=== PATIENT | female | born 1935 | race Caucasian/White ===

== ENCOUNTER 2017-02-16 11:12 | Inpatient (IN) | payer OTHER ==
[~2017-02-16] VITALS: Ht 152.4 cm; Wt 75.6 kg
[~2017-02-16 11:12] MED LIST: AZIT500T5 PO; CIPR250T27 PO; CLIN300C8 PO; FLUO10CA13 PO; HYDR-3240 PO; HYDR-882 PO; LISI1TAB3 PO; LISI2.5T PO; METF10002 PO; METF500T4 PO; POLY17PO5 PO
[2017-02-16] MEDS ORDERED: SODIUM CHLORIDE FLUSH 10ML SYR IVF ONE (11:30)
[2017-02-16 11:46] LABS: HEMATOCRIT 38.3 % (34.6-47.8); HEMOGLOBIN 12.6 g/dL (11.7-16.4); WHITE BLOOD COUNT 10.8 x10^3/uL (3.4-10)
[2017-02-16 11:58] LABS: ASPARTATE AMINO TRANSFERASE 32 U/L (15-37); BLOOD UREA NITROGEN 29 mg/dL (7-18)
[2017-02-16 12:04] LABS: IS PT STATUS REG ER OR PRE ER? YES
[2017-02-16] MEDS ORDERED: FURO20TA3 PO (12:49)
[2017-02-16] MEDS ORDERED: SULF1TAB24 PO (12:49)
[2017-02-16] MEDS ORDERED: PRIM50TA PO (12:49)
[2017-02-16] MEDS ORDERED: HYDR-882 PO (12:49)
[2017-02-16] MEDS ORDERED: SPIR25TA3 PO (12:49)
[2017-02-16] MEDS ORDERED: ZOLPIDEM 5MG TABLET PO PRN (14:30)
[2017-02-16] MEDS ORDERED: NITROGLYCERIN 0.4 MG BOTTLE (25 TABS) SL PRN (14:30)
[2017-02-16] MEDS ORDERED: ACETAMINOPHEN 325 MG TABLET PO PRN (14:30)
[2017-02-16] MEDS ORDERED: DOCUSATE 100 MG CAPSULE PO PRN (14:30)
[2017-02-16] MEDS ORDERED: NITROGLYCERIN 0.4 MG/SPRAY SL PRN (14:30)
[2017-02-16] MEDS ORDERED: MORPHINE SULFATE 4 MG/ML, 1ML IVPush PRN (14:30)
[2017-02-16 15:24] VITALS: BP 115/62
[2017-02-16] MEDS: HYDROcodone/APAP 5/325 TABLET PO PRN ×2 (16:02→20:46)
[2017-02-16] MEDS: metFORMIN 500 MG TABLET PO SCH (17:34)
[2017-02-16] MEDS: ENOXAPARIN 40 MG/0.4 ML SQ SCH (17:35)
[2017-02-16 19:00] VITALS: BP 109/80
[2017-02-16 19:19] LABS: IS PT STATUS REG ER OR PRE ER? NO
[2017-02-16] MEDS ORDERED: ENOXAPARIN 30 MG/0.3 ML SQ SCH (20:00)
[2017-02-16 20:44] VITALS: BP 125/63
[2017-02-16] MEDS: LACTULOSE 10 GM/15 ML UDC PO SCH (20:46)
[2017-02-16] MEDS: PRIMIDONE 50 MG TABLET PO SCH (20:47)
[2017-02-16 23:34] VITALS: BP 138/72
[2017-02-16] MEDS: NITROGLYCERIN 0.4 MG BOTTLE (25 TABS) SL PRN ×3 (23:50→23:59)
[2017-02-16 23:53] VITALS: BP 121/75
[2017-02-16 23:58] VITALS: BP 114/61
[2017-02-17] VITALS (9 sets, daily range): BP systolic 107–160; BP diastolic 63–80
[2017-02-17] MEDS ORDERED: NITROGLYCERIN 0.4 MG BOTTLE (25 TABS) SL PRN
[2017-02-17] MEDS ORDERED: NITROGLYCERIN 0.4 MG/SPRAY SL PRN
[2017-02-17] MEDS: HYDROcodone/APAP 5/325 TABLET PO PRN ×5 (00:14→23:01)
[2017-02-17] MEDS: ONDANSETRON ODT 4 MG PO PRN ×2 (03:13→13:02)
[2017-02-17 05:28] LABS: HEMATOCRIT 38.6 % (34.6-47.8); HEMOGLOBIN 12.7 g/dL (11.7-16.4); WHITE BLOOD COUNT 12.2 x10^3/uL (3.4-10)
[2017-02-17] MEDS: ASPIRIN 325 MG TABLET EC PO SCH (05:29)
[2017-02-17 05:42] LABS: ASPARTATE AMINO TRANSFERASE 30 U/L (15-37); BLOOD UREA NITROGEN 22 mg/dL (7-18)
[2017-02-17] MEDS ORDERED: REGADENOSON 0.4 MG/5 ML SYRINGE ONE (07:58)
[2017-02-17] MEDS: LACTULOSE 10 GM/15 ML UDC PO SCH ×2 (09:00→20:53)
[2017-02-17] MEDS: SPIRONOLACTONE 25 MG TABLET PO SCH (10:20)
[2017-02-17] MEDS: metFORMIN 500 MG TABLET PO SCH ×2 (10:20→16:39)
[2017-02-17] MEDS: PRIMIDONE 50 MG TABLET PO SCH ×2 (10:21→20:53)
[2017-02-17] MEDS: LISINOPRIL 10 MG TABLET PO SCH (10:21)
[2017-02-17] MEDS: HYDROCHLOROTHIAZIDE 12.5 MG CAPSULE PO SCH (10:21)
[2017-02-17] MEDS: ENOXAPARIN 40 MG/0.4 ML SQ SCH (15:38)
[2017-02-17] MEDS ORDERED: BUPIVACAINE/PF-EPI 0.5% 1:200K ONE (16:06)
[2017-02-17] MEDS ORDERED: MIDAZOLAM 1 MG/ML, 2ML ONE (16:19)
[2017-02-17] MEDS ORDERED: FENTANYL PF 250 MCG/5ML ONE (16:19)
[2017-02-17] MEDS ORDERED: CEFAZOLIN 1,000 MG ONE (16:55)
[2017-02-17] MEDS ORDERED: ROCURONIUM 10 MG/ML ONE (16:55)
[2017-02-17] MEDS ORDERED: PROPOFOL 10 MG/ML, 20ML ONE (16:55)
[2017-02-17] MEDS ORDERED: SUGAMMADEX 200 MG/2 ML IVPush ONE (17:21)
[2017-02-17] MEDS ORDERED: FENTANYL PF 100 MCG/2ML ONE (18:16)
[2017-02-17] MEDS ORDERED: OXYcodone 5 MG/5 ML ORAL.SOL UDC ONE (18:16)
[2017-02-17] MEDS: FENTANYL PF 100 MCG/2ML IV PRN ×4 (18:20→18:50)
[2017-02-17] MEDS ORDERED: ONDANSETRON 2MG/ML, 2ML IVPush PRN (18:30)
[2017-02-17] MEDS ORDERED: hydrALAzine 20 MG/ML, 1ML IV PRN (18:30)
[2017-02-17] MEDS ORDERED: OXYcodone 5 MG/5 ML ORAL.SOL UDC PO PRN (18:30)
[2017-02-17] MEDS ORDERED: ACETAMINOPHEN 325 MG TABLET PO PRN (18:30)
[2017-02-17] MEDS ORDERED: LABETALOL 5MG/ML, 20ML IV PRN (18:30)
[2017-02-17] MEDS ORDERED: HYDROmorphone 1 MG/ML, 1ML IV PRN (18:30)
[2017-02-17] MEDS ORDERED: SODIUM CHLORIDE 0.9% 500 ML IV ONE (21:00)
[2017-02-18 01:48] VITALS: BP 102/53
[2017-02-18] MEDS: ASPIRIN 325 MG TABLET EC PO SCH (05:24)
[2017-02-18 05:31] VITALS: BP 102/63
[2017-02-18] MEDS: HYDROcodone/APAP 5/325 TABLET PO PRN ×5 (05:32→22:13)
[2017-02-18 07:13] VITALS: BP 93/45
[2017-02-18 08:09] VITALS: BP 107/63
[2017-02-18] MEDS: LACTULOSE 10 GM/15 ML UDC PO SCH ×2 (09:00→21:00)
[2017-02-18] MEDS: LISINOPRIL 10 MG TABLET PO SCH (09:08)
[2017-02-18] MEDS: SPIRONOLACTONE 25 MG TABLET PO SCH (09:08)
[2017-02-18] MEDS: metFORMIN 500 MG TABLET PO SCH ×2 (09:08→17:29)
[2017-02-18] MEDS: HYDROCHLOROTHIAZIDE 12.5 MG CAPSULE PO SCH (09:09)
[2017-02-18] MEDS: PRIMIDONE 50 MG TABLET PO SCH ×2 (09:09→21:23)
[2017-02-18 13:16] VITALS: BP 108/63
[2017-02-18] MEDS ORDERED: ENOXAPARIN 30 MG/0.3 ML SQ SCH (16:00)
[2017-02-18 19:12] VITALS: BP 99/58
[2017-02-19 02:00] VITALS: BP 96/59
[2017-02-19] MEDS: HYDROcodone/APAP 5/325 TABLET PO PRN ×4 (03:37→16:37)
[2017-02-19 08:12] VITALS: BP 125/69
[2017-02-19] MEDS: LACTULOSE 10 GM/15 ML UDC PO SCH ×2 (09:00→09:10)
[2017-02-19] MEDS: HYDROCHLOROTHIAZIDE 12.5 MG CAPSULE PO SCH (09:09)
[2017-02-19] MEDS: LISINOPRIL 10 MG TABLET PO SCH (09:09)
[2017-02-19] MEDS: metFORMIN 500 MG TABLET PO SCH (09:09)
[2017-02-19] MEDS: PRIMIDONE 50 MG TABLET PO SCH (09:09)
[2017-02-19] MEDS: SPIRONOLACTONE 25 MG TABLET PO SCH (09:09)
[2017-02-19] MEDS: ASPIRIN 325 MG TABLET EC PO SCH (09:09)
[2017-02-19 14:06] VITALS: BP 114/62
== END 2017-02-19 17:24 | disposition home or self-care (01) | DRG 417 ==
LOC: ED 11:36 → INTOOBSV 13:51 → EDIP 13:51 → 5SO 15:16 → OBSVTOIN 02-17 15:27
PROVIDERS: ADMIT Internal Medicine; ATTEND Internal Medicine
PROC: 0FT44ZZ Resection of Gallbladder, Percutaneous Endoscopic Approach (ICD-10-PCS; principal; 2017-02-17 17:30)
DX: K80.00 Calculus of gallbladder with acute cholecystitis without obstruction (principal); J18.9 Pneumonia, unspecified organism; N17.0 Acute kidney failure with tubular necrosis; J44.9 Chronic obstructive pulmonary disease, unspecified; E11.9 Type 2 diabetes mellitus without complications; N28.1 Cyst of kidney, acquired; I10 Essential (primary) hypertension; E78.5 Hyperlipidemia, unspecified; K82.8 Other specified diseases of gallbladder; R25.1 Tremor, unspecified; Z87.891 Personal history of nicotine dependence; Z90.49 Acquired absence of other specified parts of digestive tract; Z88.0 Allergy status to penicillin; Z88.6 Allergy status to analgesic agent
CPT/HCPCS: 36415; 71010; 76700; 78452; 80053; 80061; 83036; 83690; 83880; 84484; 85025; 85610; 85730; 87324; 87493; 88304; 93005; 93017; G0378; J0690; J1650; J2250; J2704; J2785; J3010; Q0162; A9502; C9898; J7040

== ENCOUNTER 2018-06-20 13:17 | Observation (INO) | payer OTHER ==
[~2018-06-20] VITALS: Ht 154.9 cm; Wt 63.8 kg
[~2018-06-20 13:17] MED LIST changes: +ASPI-515 PO; +ATOR20TA37 PO; +CIPR500T87 PO; +FURO20TA3 PO; +HYDR-3653 PO; -HYDR-882 PO; +METF500T PO; +METF500T17 PO; -METF500T4 PO; +PRIM50TA PO; +SPIR25TA5 PO; +SULF1TAB24 PO
[2018-06-20] MEDS ORDERED: SODIUM CHLORIDE FLUSH 10ML SYR IVF ONE (16:30)
[2018-06-20 16:35] LABS: BASOPHILS # (AUTO) 0.18 x10^3/uL (0-0.1); BASOPHILS % (AUTO) 2 % (0-1); EOSINOPHILS # (AUTO) 0.03 x10^3/uL (0-0.4); EOSINOPHILS % (AUTO) 0 % (1-7); LYMPHOCYTES # (AUTO) 2.38 x10^3/uL (1-3.4); LYMPHOCYTES % (AUTO) 21 % (22-44); MD NO; MEAN CORPUSCULAR HEMOGLOBIN 33.5 pg (27.0-34.8); MEAN CORPUSCULAR HGB CONC 33.4 g/dL (32.4-35.8); MEAN CORPUSCULAR VOLUME 100.3 fL (80-100); MEAN PLATELET VOLUME 7.1 fL (7.4-10.4); MONOCYTES # (AUTO) 0.53 x10^3/uL (0.2-0.8); MONOCYTES % (AUTO) 5 % (2-9); NEUTROPHILS # (AUTO) 7.98 x10^3/uL (1.8-6.8); NEUTROPHILS % (AUTO) 72 % (42-75); PLATELET COUNT 353 x10^3/uL (130-400); RED BLOOD COUNT 3.52 x10^6/uL (3.82-5.3); RED CELL DISTRIBUTION WIDTH 13.7 % (9.6-15.2)
[2018-06-20 16:46] LABS: ALANINE AMINOTRANSFERASE 22 U/L (12-78); ALBUMIN 3.5 g/dL (3.4-5.0); ANION GAP 9 mmol/L (5-15); CALCIUM 9.2 mg/dL (8.5-10.1); CHLORIDE 97 mmol/L (98-107); CREATININE 1.98 mg/dL (0.55-1.02)
[2018-06-20 16:50] LABS: ALKALINE PHOSPHATASE 40 U/L (45-117); BILIRUBIN,TOTAL 0.7 mg/dL (0.2-1.0); TOTAL PROTEIN 6.7 g/dL (6.4-8.2); TROPONIN I < 0.015 ng/mL (0.000-0.045)
[2018-06-20] MEDS ORDERED: PRED10TA PO (17:38)
[2018-06-20] MEDS ORDERED: FLUO20CA19 PO (17:38)
[2018-06-20] MEDS ORDERED: ALLO300T PO (17:38)
[2018-06-20] MEDS ORDERED: METF500T17 PO (17:38)
[2018-06-20] MEDS ORDERED: TRAZODONE 50MG TABLET PO PRN (18:30)
[2018-06-20] MEDS ORDERED: GABAPENTIN 300 MG CAPSULE PO PRN (18:30)
[2018-06-20] MEDS ORDERED: ACETAMINOPHEN 325 MG TABLET PO PRN (18:30)
[2018-06-20 18:40] VITALS: BP 115/60
[2018-06-20] MEDS ORDERED: LEVOFLOXACIN/PMX 500MG/100ML 100 ML IV SCH (19:00)
[2018-06-20] MEDS: NS + 20MEQ KCL 1,000 ML IV SCH (19:59)
[2018-06-20] MEDS: LACTULOSE 10 GM/15 ML UDC PO SCH (20:03)
[2018-06-20] MEDS: ENOXAPARIN 30 MG/0.3 ML SQ SCH (20:03)
[2018-06-20 21:18] LABS: MICROSCOPIC AUTO
[2018-06-20 21:22] LABS: CULTURE INDICATED? YES
[2018-06-21 03:12] VITALS: BP 122/67
[2018-06-21 06:07] LABS: BASOPHILS # (AUTO) 0.03 x10^3/uL (0-0.1); BASOPHILS % (AUTO) 0 % (0-1); EOSINOPHILS # (AUTO) 0.17 x10^3/uL (0-0.4); EOSINOPHILS % (AUTO) 2 % (1-7); LYMPHOCYTES # (AUTO) 2.16 x10^3/uL (1-3.4); LYMPHOCYTES % (AUTO) 23 % (22-44); MD NO; MEAN CORPUSCULAR HEMOGLOBIN 33.6 pg (27.0-34.8); MEAN CORPUSCULAR HGB CONC 33.6 g/dL (32.4-35.8); MEAN PLATELET VOLUME 7.4 fL (7.4-10.4); MONOCYTES # (AUTO) 0.75 x10^3/uL (0.2-0.8); MONOCYTES % (AUTO) 8 % (2-9); NEUTROPHILS # (AUTO) 6.44 x10^3/uL (1.8-6.8); NEUTROPHILS % (AUTO) 67 % (42-75); PLATELET COUNT 309 x10^3/uL (130-400); RED BLOOD COUNT 3.12 x10^6/uL (3.82-5.3); RED CELL DISTRIBUTION WIDTH 13.4 % (9.6-15.2)
[2018-06-21 06:18] LABS: ALANINE AMINOTRANSFERASE 18 U/L (12-78); ANION GAP 7 mmol/L (5-15); CALCIUM 8.5 mg/dL (8.5-10.1); CHLORIDE 101 mmol/L (98-107)
[2018-06-21 06:21] LABS: ALKALINE PHOSPHATASE 35 U/L (45-117); BILIRUBIN,TOTAL 0.7 mg/dL (0.2-1.0); CREATININE 1.34 mg/dL (0.55-1.02); TOTAL PROTEIN 5.8 g/dL (6.4-8.2)
[2018-06-21 06:46] VITALS: BP 120/72
[2018-06-21] MEDS: NS + 20MEQ KCL 1,000 ML IV SCH ×2 (07:48→18:15)
[2018-06-21] MEDS: HYDROCHLOROTHIAZIDE 12.5 MG CAPSULE PO SCH (09:25)
[2018-06-21] MEDS: FUROSEMIDE 20 MG TABLET PO SCH (09:25)
[2018-06-21] MEDS: LISINOPRIL 10 MG TABLET PO SCH (09:25)
[2018-06-21] MEDS: FLUOXETINE HCL 20 MG CAPSULE PO SCH (09:25)
[2018-06-21] MEDS: metFORMIN 500 MG TABLET PO SCH (09:25)
[2018-06-21] MEDS: LACTULOSE 10 GM/15 ML UDC PO SCH ×2 (09:27→20:18)
[2018-06-21 13:35] VITALS: BP 99/62
[2018-06-21] MEDS: ONDANSETRON ODT 4 MG PO PRN (13:48)
[2018-06-21] MEDS: HYDROcodone/APAP 10/325 MG TABLET PO PRN ×2 (16:15→20:20)
[2018-06-21] MEDS: ENOXAPARIN 30 MG/0.3 ML SQ SCH (18:15)
[2018-06-21] MEDS: LEVOFLOXACIN/PMX 250MG/50ML 50 ML IV SCH (19:06)
[2018-06-21 19:07] VITALS: BP 100/63
[2018-06-22 01:44] VITALS: BP 122/66
[2018-06-22] MEDS: NS + 20MEQ KCL 1,000 ML IV SCH ×2 (02:52→13:30)
[2018-06-22] MEDS: HYDROcodone/APAP 10/325 MG TABLET PO PRN ×4 (02:52→21:06)
[2018-06-22 07:11] VITALS: BP 114/67
[2018-06-22] MEDS: LISINOPRIL 10 MG TABLET PO SCH (08:46)
[2018-06-22] MEDS: FUROSEMIDE 20 MG TABLET PO SCH (08:46)
[2018-06-22] MEDS: metFORMIN 500 MG TABLET PO SCH (08:46)
[2018-06-22] MEDS: LACTULOSE 10 GM/15 ML UDC PO SCH ×2 (08:46→19:54)
[2018-06-22] MEDS: HYDROCHLOROTHIAZIDE 12.5 MG CAPSULE PO SCH (08:46)
[2018-06-22] MEDS: FLUOXETINE HCL 20 MG CAPSULE PO SCH (08:46)
[2018-06-22 13:06] VITALS: BP 107/66
[2018-06-22] MEDS: ENOXAPARIN 30 MG/0.3 ML SQ SCH (15:26)
[2018-06-22 19:00] VITALS: BP 97/61
[2018-06-22] MEDS: LEVOFLOXACIN/PMX 250MG/50ML 50 ML IV SCH (19:08)
[2018-06-23] MEDS: HYDROcodone/APAP 10/325 MG TABLET PO PRN ×4 (01:28→20:31)
[2018-06-23 01:41] VITALS: BP 104/66
[2018-06-23 05:57] LABS: ALANINE AMINOTRANSFERASE 17 U/L (12-78); ANION GAP 6 mmol/L (5-15); CALCIUM 8.8 mg/dL (8.5-10.1); CHLORIDE 102 mmol/L (98-107); CREATININE 0.92 mg/dL (0.55-1.02)
[2018-06-23 05:59] LABS: ALKALINE PHOSPHATASE 37 U/L (45-117); BILIRUBIN,TOTAL 0.6 mg/dL (0.2-1.0)
[2018-06-23 07:31] VITALS: BP 122/80
[2018-06-23] MEDS: ONDANSETRON ODT 4 MG PO PRN (09:39)
[2018-06-23] MEDS: metFORMIN 500 MG TABLET PO SCH (10:44)
[2018-06-23] MEDS: LACTULOSE 10 GM/15 ML UDC PO SCH ×2 (10:45→19:06)
[2018-06-23] MEDS: FUROSEMIDE 20 MG TABLET PO SCH (10:48)
[2018-06-23] MEDS: HYDROCHLOROTHIAZIDE 12.5 MG CAPSULE PO SCH (10:50)
[2018-06-23] MEDS: LISINOPRIL 10 MG TABLET PO SCH (10:54)
[2018-06-23] MEDS: FLUOXETINE HCL 20 MG CAPSULE PO SCH (10:56)
[2018-06-23 14:30] VITALS: BP 117/75
[2018-06-23] MEDS: ENOXAPARIN 30 MG/0.3 ML SQ SCH (17:34)
[2018-06-23] MEDS: LEVOFLOXACIN/PMX 250MG/50ML 50 ML IV SCH (19:06)
[2018-06-23 19:34] VITALS: BP 124/67
[2018-06-24 00:29] VITALS: BP 109/78
[2018-06-24] MEDS: HYDROcodone/APAP 10/325 MG TABLET PO PRN ×4 (03:09→20:33)
[2018-06-24 05:44] LABS: BASOPHILS % (AUTO) 0 % (0-1); EOSINOPHILS % (AUTO) 3 % (1-7); LYMPHOCYTES # (AUTO) 2.17 x10^3/uL (1-3.4); LYMPHOCYTES % (AUTO) 19 % (22-44); MD NO; MEAN CORPUSCULAR HEMOGLOBIN 33.8 pg (27.0-34.8); MEAN CORPUSCULAR HGB CONC 33.4 g/dL (32.4-35.8); MEAN CORPUSCULAR VOLUME 101.3 fL (80-100); MEAN PLATELET VOLUME 7.2 fL (7.4-10.4); MONOCYTES # (AUTO) 0.79 x10^3/uL (0.2-0.8); MONOCYTES % (AUTO) 7 % (2-9); NEUTROPHILS # (AUTO) 8.04 x10^3/uL (1.8-6.8); NEUTROPHILS % (AUTO) 71 % (42-75); PLATELET COUNT 345 x10^3/uL (130-400); RED BLOOD COUNT 3.31 x10^6/uL (3.82-5.3); RED CELL DISTRIBUTION WIDTH 13.7 % (9.6-15.2)
[2018-06-24 05:47] LABS: ALBUMIN 3.1 g/dL (3.4-5.0); ANION GAP 5 mmol/L (5-15); CALCIUM 9.1 mg/dL (8.5-10.1); CHLORIDE 97 mmol/L (98-107)
[2018-06-24 05:54] LABS: ALANINE AMINOTRANSFERASE 20 U/L (12-78); ALKALINE PHOSPHATASE 35 U/L (45-117); BILIRUBIN,TOTAL 0.6 mg/dL (0.2-1.0); CREATININE 0.91 mg/dL (0.55-1.02)
[2018-06-24 08:05] VITALS: BP 121/67
[2018-06-24] MEDS: metFORMIN 500 MG TABLET PO SCH (09:06)
[2018-06-24] MEDS: FUROSEMIDE 20 MG TABLET PO SCH (09:07)
[2018-06-24] MEDS: HYDROCHLOROTHIAZIDE 12.5 MG CAPSULE PO SCH (09:07)
[2018-06-24] MEDS: LISINOPRIL 10 MG TABLET PO SCH (09:10)
[2018-06-24] MEDS: FLUOXETINE HCL 20 MG CAPSULE PO SCH (09:11)
[2018-06-24] MEDS: LACTULOSE 10 GM/15 ML UDC PO SCH ×2 (09:11→19:25)
[2018-06-24 14:30] VITALS: BP 95/59
[2018-06-24 15:22] VITALS: BP 112/73
[2018-06-24] MEDS: ENOXAPARIN 40 MG/0.4 ML SQ SCH (17:43)
[2018-06-24 19:18] VITALS: BP 109/67
[2018-06-24] MEDS: LEVOFLOXACIN/PMX 250MG/50ML 50 ML IV SCH (19:27)
[2018-06-25 01:48] VITALS: BP 122/71
[2018-06-25] MEDS: HYDROcodone/APAP 10/325 MG TABLET PO PRN ×4 (03:51→21:36)
[2018-06-25 06:59] VITALS: BP 105/69
[2018-06-25] MEDS: LISINOPRIL 10 MG TABLET PO SCH (08:13)
[2018-06-25] MEDS: FLUOXETINE HCL 20 MG CAPSULE PO SCH (08:13)
[2018-06-25] MEDS: LACTULOSE 10 GM/15 ML UDC PO SCH ×2 (08:13→21:36)
[2018-06-25] MEDS: metFORMIN 500 MG TABLET PO SCH (08:13)
[2018-06-25] MEDS: FUROSEMIDE 20 MG TABLET PO SCH (08:14)
[2018-06-25] MEDS: HYDROCHLOROTHIAZIDE 12.5 MG CAPSULE PO SCH (08:14)
[2018-06-25] MEDS ORDERED: NITROFURANTOIN (MACROBID) 100 MG CAPSULE PO SCH (11:30)
[2018-06-25 12:38] VITALS: BP 101/58
[2018-06-25] MEDS: LINEZOLID 600 MG TABLET PO SCH ×2 (12:55→21:37)
[2018-06-25] MEDS: ENOXAPARIN 40 MG/0.4 ML SQ SCH (17:00)
[2018-06-25 18:35] VITALS: BP 109/67
[2018-06-26 02:16] VITALS: BP 113/62
[2018-06-26] MEDS: HYDROcodone/APAP 10/325 MG TABLET PO PRN ×4 (03:04→18:14)
[2018-06-26 07:26] VITALS: BP 101/70
[2018-06-26] MEDS: ONDANSETRON ODT 4 MG PO PRN (08:06)
[2018-06-26] MEDS: metFORMIN 500 MG TABLET PO SCH (08:51)
[2018-06-26] MEDS: HYDROCHLOROTHIAZIDE 12.5 MG CAPSULE PO SCH (08:52)
[2018-06-26] MEDS: FUROSEMIDE 20 MG TABLET PO SCH (08:52)
[2018-06-26] MEDS: LACTULOSE 10 GM/15 ML UDC PO SCH ×2 (08:52→22:09)
[2018-06-26] MEDS: FLUOXETINE HCL 20 MG CAPSULE PO SCH (08:53)
[2018-06-26] MEDS: LISINOPRIL 10 MG TABLET PO SCH (08:53)
[2018-06-26] MEDS: LINEZOLID 600 MG TABLET PO SCH ×2 (08:53→22:09)
[2018-06-26 12:59] VITALS: BP 91/56
[2018-06-26] MEDS: ENOXAPARIN 40 MG/0.4 ML SQ SCH (16:46)
[2018-06-27] MEDS: HYDROcodone/APAP 10/325 MG TABLET PO PRN ×3 (00:34→20:32)
[2018-06-27 00:36] VITALS: BP 109/67
[2018-06-27 06:04] LABS: BASOPHILS # (AUTO) 0.06 x10^3/uL (0-0.1); BASOPHILS % (AUTO) 1 % (0-1); EOSINOPHILS % (AUTO) 3 % (1-7); LYMPHOCYTES # (AUTO) 2.52 x10^3/uL (1-3.4); LYMPHOCYTES % (AUTO) 23 % (22-44); MD NO; MEAN CORPUSCULAR HEMOGLOBIN 33.4 pg (27.0-34.8); MEAN CORPUSCULAR HGB CONC 33.5 g/dL (32.4-35.8); MEAN PLATELET VOLUME 7.3 fL (7.4-10.4); MONOCYTES # (AUTO) 0.75 x10^3/uL (0.2-0.8); MONOCYTES % (AUTO) 7 % (2-9); NEUTROPHILS # (AUTO) 7.31 x10^3/uL (1.8-6.8); NEUTROPHILS % (AUTO) 67 % (42-75); PLATELET COUNT 391 x10^3/uL (130-400); RED BLOOD COUNT 3.57 x10^6/uL (3.82-5.3); RED CELL DISTRIBUTION WIDTH 13.4 % (9.6-15.2)
[2018-06-27 08:00] VITALS: BP 104/67
[2018-06-27] MEDS: LISINOPRIL 10 MG TABLET PO SCH (09:00)
[2018-06-27] MEDS: LACTULOSE 10 GM/15 ML UDC PO SCH ×2 (09:00→20:32)
[2018-06-27] MEDS: FLUOXETINE HCL 20 MG CAPSULE PO SCH (09:20)
[2018-06-27] MEDS: LINEZOLID 600 MG TABLET PO SCH ×2 (09:21→20:32)
[2018-06-27] MEDS: HYDROCHLOROTHIAZIDE 12.5 MG CAPSULE PO SCH (09:21)
[2018-06-27] MEDS: FUROSEMIDE 20 MG TABLET PO SCH (09:21)
[2018-06-27] MEDS: metFORMIN 500 MG TABLET PO SCH (09:21)
[2018-06-27 14:00] VITALS: BP 118/74
[2018-06-27 16:15] VITALS: BP 118/74
[2018-06-27] MEDS: ENOXAPARIN 40 MG/0.4 ML SQ SCH (17:10)
[2018-06-27 19:50] VITALS: BP 104/68
[2018-06-28 01:15] VITALS: BP 119/75
[2018-06-28] MEDS: HYDROcodone/APAP 10/325 MG TABLET PO PRN ×4 (05:52→19:52)
[2018-06-28 08:06] VITALS: BP 127/79
[2018-06-28] MEDS: FUROSEMIDE 20 MG TABLET PO SCH (08:48)
[2018-06-28] MEDS: HYDROCHLOROTHIAZIDE 12.5 MG CAPSULE PO SCH (08:48)
[2018-06-28] MEDS: LINEZOLID 600 MG TABLET PO SCH ×2 (08:48→19:52)
[2018-06-28] MEDS: FLUOXETINE HCL 20 MG CAPSULE PO SCH (08:48)
[2018-06-28] MEDS: metFORMIN 500 MG TABLET PO SCH (08:49)
[2018-06-28] MEDS: LACTULOSE 10 GM/15 ML UDC PO SCH ×2 (08:49→15:58)
[2018-06-28] MEDS: LISINOPRIL 10 MG TABLET PO SCH (08:49)
[2018-06-28] MEDS: ONDANSETRON ODT 4 MG PO PRN ×2 (10:44→15:58)
[2018-06-28 14:05] VITALS: BP 98/66
[2018-06-28] MEDS: ENOXAPARIN 40 MG/0.4 ML SQ SCH (17:50)
[2018-06-28 18:57] VITALS: BP 88/59
[2018-06-29] MEDS: HYDROcodone/APAP 10/325 MG TABLET PO PRN ×3 (01:15→16:13)
[2018-06-29 01:16] VITALS: BP 94/61
[2018-06-29 05:59] LABS: BASOPHILS # (AUTO) 0.04 x10^3/uL (0-0.1); BASOPHILS % (AUTO) 0 % (0-1); EOSINOPHILS # (AUTO) 0.17 x10^3/uL (0-0.4); EOSINOPHILS % (AUTO) 1 % (1-7); LYMPHOCYTES # (AUTO) 2.82 x10^3/uL (1-3.4); LYMPHOCYTES % (AUTO) 23 % (22-44); MD NO; MEAN CORPUSCULAR HEMOGLOBIN 33.6 pg (27.0-34.8); MEAN CORPUSCULAR HGB CONC 33.5 g/dL (32.4-35.8); MEAN CORPUSCULAR VOLUME 100.3 fL (80-100); MEAN PLATELET VOLUME 7.4 fL (7.4-10.4); MONOCYTES # (AUTO) 0.85 x10^3/uL (0.2-0.8); MONOCYTES % (AUTO) 7 % (2-9); NEUTROPHILS # (AUTO) 8.25 x10^3/uL (1.8-6.8); NEUTROPHILS % (AUTO) 68 % (42-75); PLATELET COUNT 406 x10^3/uL (130-400); RED BLOOD COUNT 3.58 x10^6/uL (3.82-5.3); RED CELL DISTRIBUTION WIDTH 13.3 % (9.6-15.2)
[2018-06-29 06:12] LABS: ALBUMIN 3.1 g/dL (3.4-5.0); ANION GAP 7 mmol/L (5-15); CALCIUM 9.5 mg/dL (8.5-10.1); CHLORIDE 92 mmol/L (98-107)
[2018-06-29 06:16] LABS: ALANINE AMINOTRANSFERASE 23 U/L (12-78); ALKALINE PHOSPHATASE 44 U/L (45-117); BILIRUBIN,TOTAL 0.6 mg/dL (0.2-1.0); CREATININE 1.61 mg/dL (0.55-1.02); TOTAL PROTEIN 6.2 g/dL (6.4-8.2)
[2018-06-29 08:09] VITALS: BP 113/76
[2018-06-29] MEDS: LACTULOSE 10 GM/15 ML UDC PO SCH (08:48)
[2018-06-29] MEDS: metFORMIN 500 MG TABLET PO SCH (08:49)
[2018-06-29] MEDS: FLUOXETINE HCL 20 MG CAPSULE PO SCH (08:49)
[2018-06-29] MEDS: LINEZOLID 600 MG TABLET PO SCH (08:49)
[2018-06-29] MEDS: LISINOPRIL 10 MG TABLET PO SCH (08:51)
[2018-06-29 13:04] VITALS: BP 91/63
[2018-06-29] MEDS ORDERED: HYDR-3307 PO (13:53)
[2018-06-29] MEDS ORDERED: PRED5TAB PO (13:53)
[2018-06-29] MEDS ORDERED: LINE600T33 PO (13:53)
[2018-06-29 15:44] VITALS: BP 93/64
[2018-06-29] MEDS ORDERED: ENOXAPARIN 30 MG/0.3 ML SQ SCH (17:00)
== END 2018-06-29 16:50 ==
LOC: ED 16:31 → EDIP 16:58 → INTOOBSV 16:58 → 3NE 17:23
PROVIDERS: ADMIT Internal Medicine; ATTEND Internal Medicine
DX: R53.1 Weakness (principal); N39.0 Urinary tract infection, site not specified; R53.2 Functional quadriplegia; E87.1 Hypo-osmolality and hyponatremia; I13.0 Hypertensive heart and chronic kidney disease with heart failure and stage 1 through stage 4 chronic kidney disease, or unspecified chronic kidney disease; I50.32 Chronic diastolic (congestive) heart failure; R62.7 Adult failure to thrive; M35.3 Polymyalgia rheumatica; E11.51 Type 2 diabetes mellitus with diabetic peripheral angiopathy without gangrene; K21.9 Gastro-esophageal reflux disease without esophagitis; E11.65 Type 2 diabetes mellitus with hyperglycemia; E11.22 Type 2 diabetes mellitus with diabetic chronic kidney disease; F03.90 Unspecified dementia, unspecified severity, without behavioral disturbance, psychotic disturbance, mood disturbance, and anxiety; M13.0 Polyarthritis, unspecified; E86.0 Dehydration; J32.0 Chronic maxillary sinusitis; N18.9 Chronic kidney disease, unspecified; Z87.891 Personal history of nicotine dependence
CPT/HCPCS: 36415; 70450; 73564; 80053; 81001; 83605; 84484; 85025; 87077; 87086; 87186; 93005; 93970; 96365; 96366; 96372; 97110; 97162; 97166; 97530; 99285; G0378; G8978; G8979; G8980; J1650; J1956; J3480; J7512; Q0162

== ENCOUNTER 2018-07-31 21:05 | Inpatient (IN) | payer OTHER ==
[~2018-07-31] VITALS: Ht 152.4 cm; Wt 66.2 kg
[~2018-07-31 21:05] MED LIST changes: +ALLO300T PO; +FLUO20CA19 PO; +HYDR-3307 PO; +LINE600T33 PO; +PRED10TA PO; +PRED5TAB PO
[2018-07-31] MEDS ORDERED: SODIUM CHLORIDE FLUSH 10ML SYR IVF ONE (21:30)
[2018-07-31 21:41] LABS: MEAN CORPUSCULAR HEMOGLOBIN 33.6 pg (27.0-34.8); MEAN CORPUSCULAR HGB CONC 33.4 g/dL (32.4-35.8); MEAN CORPUSCULAR VOLUME 100.6 fL (80-100); MEAN PLATELET VOLUME 6.9 fL (7.4-10.4); PLATELET COUNT 495 x10^3/uL (130-400); RED BLOOD COUNT 3.23 x10^6/uL (3.82-5.3); RED CELL DISTRIBUTION WIDTH 14.4 % (9.6-15.2)
[2018-07-31 21:52] LABS: INTERNATIONAL NORMALIZED RATIO 0.98 (0.93-1.1); PROTHROMBIN TIME 10.4 Seconds (9.6-11.5)
[2018-07-31 21:54] LABS: ALANINE AMINOTRANSFERASE 40 U/L (12-78); ALBUMIN 2.7 g/dL (3.4-5.0); ANION GAP 10 mmol/L (5-15); CALCIUM 8.8 mg/dL (8.5-10.1); CHLORIDE 99 mmol/L (98-107); CREATININE 1.57 mg/dL (0.55-1.02)
[2018-07-31 21:58] LABS: ALKALINE PHOSPHATASE 138 U/L (45-117); BILIRUBIN,TOTAL 0.9 mg/dL (0.2-1.0); TOTAL PROTEIN 6.8 g/dL (6.4-8.2)
[2018-07-31 22:00] LABS: MD YES
[2018-07-31 22:03] LABS: BANDS%(MANUAL) 1 % (0-7); LYMPH#(MANUAL) 1.22 x10^3/uL (1-3.4); LYMPHS% (MANUAL) 6 % (22-44); MONOS#(MANUAL) 0.81 x10^3/uL (0.3-2.7); MONOS% (MANUAL) 4 % (2-9); SEG#(MANUAL) 18.07 x10^3/uL (1.8-6.8); SEGS% (MANUAL) 89 % (42-75)
[2018-07-31 22:03] LABS: CULTURE INDICATED? YES; MICROSCOPIC INDICATED
[2018-07-31 22:04] LABS: <PLATELET ESTIMATE> INCREASED; ANISOCYTOSIS 1+; SMALL PLATELETS 1+
[2018-07-31] MEDS ORDERED: CEFTRIAXONE PMX 1GM/50ML 50 ML ONE (22:13)
[2018-07-31] MEDS ORDERED: CEFTRIAXONE PMX 1GM/50ML 50 ML IVPB ONE (22:30)
[2018-07-31] MEDS ORDERED: HYDROcodone/APAP 5/325 TABLET ONE (23:30)
[2018-07-31] MEDS ORDERED: HYDROcodone/APAP 5/325 TABLET PO ONE (23:30)
[2018-08-01] MEDS ORDERED: SODIUM CHLORIDE FLUSH 10ML SYR IVF PRN (00:30)
[2018-08-01 00:54] VITALS: BP 86/55
[2018-08-01] MEDS ORDERED: SODIUM CHLORIDE 0.9% 1,000ML IVBOLUS ONE (01:30)
[2018-08-01] MEDS ORDERED: SULFAMETH./TRIMETHOPRIM DS 800MG/160MG TABLET PO ONE (02:00)
[2018-08-01] MEDS ORDERED: POTASSIUM CHLORIDE 20 MEQ in SODIUM CHLORIDE 0.45% 1,000 ML IV SCH (03:00)
[2018-08-01] MEDS: HYDROCORTISONE 100 MG INJ. IVPush SCH ×4 (03:23→20:52)
[2018-08-01 03:40] VITALS: BP 103/60
[2018-08-01] MEDS ORDERED: ACETAMINOPHEN 325 MG TABLET PO PRN (04:00)
[2018-08-01 05:02] LABS: CHLORIDE 100 mmol/L (98-107)
[2018-08-01 05:09] LABS: MEAN CORPUSCULAR HEMOGLOBIN 33.5 pg (27.0-34.8); MEAN CORPUSCULAR HGB CONC 33.6 g/dL (32.4-35.8); MEAN PLATELET VOLUME 7.3 fL (7.4-10.4); PLATELET COUNT 447 x10^3/uL (130-400); RED BLOOD COUNT 2.97 x10^6/uL (3.82-5.3); RED CELL DISTRIBUTION WIDTH 14.2 % (9.6-15.2)
[2018-08-01 05:11] LABS: ALANINE AMINOTRANSFERASE 39 U/L (12-78); ALBUMIN 2.5 g/dL (3.4-5.0); ALKALINE PHOSPHATASE 144 U/L (45-117); ANION GAP 9 mmol/L (5-15); BILIRUBIN,TOTAL 1.2 mg/dL (0.2-1.0); CALCIUM 8.2 mg/dL (8.5-10.1); CREATININE 1.17 mg/dL (0.55-1.02); TOTAL PROTEIN 6.1 g/dL (6.4-8.2)
[2018-08-01 05:44] LABS: MD YES
[2018-08-01 05:49] LABS: <PLATELET ESTIMATE> INCREASED; BANDS%(MANUAL) 1 % (0-7); BASOS% (MANUAL) 1 % (0-1); LYMPH#(MANUAL) 1.38 x10^3/uL (1-3.4); LYMPHS% (MANUAL) 7 % (22-44); MONOS#(MANUAL) 0.59 x10^3/uL (0.3-2.7); MONOS% (MANUAL) 3 % (2-9); MYELOCYTES% (MANUAL) 1 % (0-0); SEG#(MANUAL) 17.14 x10^3/uL (1.8-6.8); SEGS% (MANUAL) 87 % (42-75)
[2018-08-01 05:50] LABS: SMALL PLATELETS 1+
[2018-08-01 06:49] VITALS: BP 99/65
[2018-08-01] MEDS: SULFAMETH./TRIMETHOPRIM DS 800MG/160MG TABLET PO SCH ×2 (08:26→19:35)
[2018-08-01 13:00] VITALS: BP 97/60
[2018-08-01] MEDS: LACTATED RINGERS 1,000 ML IV SCH (15:12)
[2018-08-01] MEDS: HYDROcodone/APAP 5/325 TABLET PO PRN ×2 (15:12→19:35)
[2018-08-01] MEDS: ENOXAPARIN 30 MG/0.3 ML SQ SCH (16:38)
[2018-08-01 17:00] LABS: MICROSCOPIC INDICATED
[2018-08-01 19:15] VITALS: BP 97/58
[2018-08-01] MEDS ORDERED: CEFTRIAXONE PMX 1GM/50ML 50 ML IV SCH (22:00)
[2018-08-02 01:17] VITALS: BP 99/60
[2018-08-02] MEDS: HYDROcodone/APAP 5/325 TABLET PO PRN ×4 (02:23→22:02)
[2018-08-02] MEDS: HYDROCORTISONE 100 MG INJ. IVPush SCH ×2 (02:23→08:20)
[2018-08-02] MEDS: LACTATED RINGERS 1,000 ML IV SCH ×2 (05:26→16:21)
[2018-08-02 05:31] LABS: HCT (SEDRATE) 26.6 % (34.6-47.8)
[2018-08-02 05:43] LABS: HEMOGLOBIN A1C 6.8 % (4.2-6.3)
[2018-08-02 06:44] VITALS: BP 108/67
[2018-08-02] MEDS: SULFAMETH./TRIMETHOPRIM DS 800MG/160MG TABLET PO SCH (08:20)
[2018-08-02] MEDS: CEFTRIAXONE PMX 2GM/50ML 50 ML IV SCH (11:27)
[2018-08-02 12:04] VITALS: BP 109/54
[2018-08-02] MEDS: ENOXAPARIN 30 MG/0.3 ML SQ SCH (16:21)
[2018-08-02 18:52] VITALS: BP 128/73
[2018-08-03 01:30] VITALS: BP 104/66
[2018-08-03] MEDS: LACTATED RINGERS 1,000 ML IV SCH ×2 (02:33→12:59)
[2018-08-03] MEDS: HYDROcodone/APAP 5/325 TABLET PO PRN ×5 (02:33→23:36)
[2018-08-03 07:03] VITALS: BP 118/69
[2018-08-03 12:36] VITALS: BP 98/62
[2018-08-03] MEDS: CEFTRIAXONE PMX 2GM/50ML 50 ML IV SCH (12:58)
[2018-08-03] MEDS: ENOXAPARIN 30 MG/0.3 ML SQ SCH (17:40)
[2018-08-03 19:07] VITALS: BP 118/65
[2018-08-04 02:16] VITALS: BP 132/57
[2018-08-04] MEDS: HYDROcodone/APAP 5/325 TABLET PO PRN ×5 (03:45→23:47)
[2018-08-04 05:05] LABS: ANION GAP 6 mmol/L (5-15); CALCIUM 8.2 mg/dL (8.5-10.1); CHLORIDE 107 mmol/L (98-107)
[2018-08-04 05:06] LABS: BASOPHILS # (AUTO) 0.03 x10^3/uL (0-0.1); BASOPHILS % (AUTO) 0 % (0-1); EOSINOPHILS # (AUTO) 0.19 x10^3/uL (0-0.4); EOSINOPHILS % (AUTO) 2 % (1-7); LYMPHOCYTES # (AUTO) 1.65 x10^3/uL (1-3.4); LYMPHOCYTES % (AUTO) 15 % (22-44); MD NO; MEAN CORPUSCULAR HEMOGLOBIN 33.8 pg (27.0-34.8); MEAN CORPUSCULAR HGB CONC 33.8 g/dL (32.4-35.8); MEAN CORPUSCULAR VOLUME 99.8 fL (80-100); MEAN PLATELET VOLUME 7.1 fL (7.4-10.4); MONOCYTES # (AUTO) 0.86 x10^3/uL (0.2-0.8); MONOCYTES % (AUTO) 8 % (2-9); NEUTROPHILS # (AUTO) 8.46 x10^3/uL (1.8-6.8); NEUTROPHILS % (AUTO) 76 % (42-75); PLATELET COUNT 449 x10^3/uL (130-400); RED BLOOD COUNT 2.67 x10^6/uL (3.82-5.3); RED CELL DISTRIBUTION WIDTH 13.7 % (9.6-15.2)
[2018-08-04 05:10] LABS: ALANINE AMINOTRANSFERASE 35 U/L (12-78); ALKALINE PHOSPHATASE 132 U/L (45-117); BILIRUBIN,TOTAL 0.3 mg/dL (0.2-1.0); CREATININE 0.67 mg/dL (0.55-1.02); TOTAL PROTEIN 5.1 g/dL (6.4-8.2)
[2018-08-04 07:45] VITALS: BP 127/61
[2018-08-04 08:32] LABS: MICROSCOPIC INDICATED
[2018-08-04] MEDS: CEFTRIAXONE PMX 2GM/50ML 50 ML IV SCH (11:33)
[2018-08-04 13:10] VITALS: BP 135/70
[2018-08-04 13:15] VITALS: BP 116/78
[2018-08-04] MEDS: ENOXAPARIN 30 MG/0.3 ML SQ SCH (17:50)
[2018-08-04 19:41] VITALS: BP 121/60
[2018-08-05 00:40] VITALS: BP 123/67
[2018-08-05] MEDS: HYDROcodone/APAP 5/325 TABLET PO PRN ×4 (04:42→20:43)
[2018-08-05 07:17] VITALS: BP 128/65
[2018-08-05] MEDS: POTASSIUM CHLORIDE 20 MEQ TAB.ER.PRT PO SCH (09:03)
[2018-08-05 12:50] VITALS: BP 117/71
[2018-08-05] MEDS: CEFTRIAXONE PMX 2GM/50ML 50 ML IV SCH (13:00)
[2018-08-05] MEDS: ENOXAPARIN 30 MG/0.3 ML SQ SCH (16:26)
[2018-08-05 18:47] VITALS: BP 135/71
[2018-08-06] MEDS: HYDROcodone/APAP 5/325 TABLET PO PRN ×6 (01:00→22:33)
[2018-08-06 01:44] VITALS: BP 132/66
[2018-08-06 07:10] VITALS: BP 120/74
[2018-08-06] MEDS: POTASSIUM CHLORIDE 20 MEQ TAB.ER.PRT PO SCH (09:50)
[2018-08-06] MEDS: FLUOXETINE HCL 20 MG CAPSULE PO SCH (09:50)
[2018-08-06 12:30] VITALS: BP 117/65
[2018-08-06] MEDS: CEFTRIAXONE PMX 2GM/50ML 50 ML IV SCH (12:35)
[2018-08-06] MEDS ORDERED: POTASSIUM CHLORIDE 20 MEQ TAB.ER.PRT PO ONE (16:00)
[2018-08-06] MEDS: ENOXAPARIN 30 MG/0.3 ML SQ SCH (17:00)
[2018-08-06 19:24] VITALS: BP 127/70
[2018-08-07 01:18] VITALS: BP 122/64
[2018-08-07] MEDS: HYDROcodone/APAP 5/325 TABLET PO PRN ×5 (02:49→23:48)
[2018-08-07 05:08] LABS: BASOPHILS # (AUTO) 0.04 x10^3/uL (0-0.1); BASOPHILS % (AUTO) 0 % (0-1); EOSINOPHILS % (AUTO) 2 % (1-7); LYMPHOCYTES # (AUTO) 2.58 x10^3/uL (1-3.4); LYMPHOCYTES % (AUTO) 21 % (22-44); MD NO; MEAN CORPUSCULAR VOLUME 100.2 fL (80-100); MEAN PLATELET VOLUME 7.2 fL (7.4-10.4); MONOCYTES # (AUTO) 0.68 x10^3/uL (0.2-0.8); MONOCYTES % (AUTO) 5 % (2-9); NEUTROPHILS # (AUTO) 8.95 x10^3/uL (1.8-6.8); NEUTROPHILS % (AUTO) 71 % (42-75); PLATELET COUNT 533 x10^3/uL (130-400); RED BLOOD COUNT 2.78 x10^6/uL (3.82-5.3); RED CELL DISTRIBUTION WIDTH 14.4 % (9.6-15.2)
[2018-08-07 05:21] LABS: ALANINE AMINOTRANSFERASE 37 U/L (12-78); ALBUMIN 2.1 g/dL (3.4-5.0); ANION GAP 5 mmol/L (5-15); CALCIUM 8.3 mg/dL (8.5-10.1); CHLORIDE 109 mmol/L (98-107)
[2018-08-07 05:24] LABS: ALKALINE PHOSPHATASE 163 U/L (45-117); BILIRUBIN,TOTAL 0.3 mg/dL (0.2-1.0); CREATININE 0.66 mg/dL (0.55-1.02); TOTAL PROTEIN 5.6 g/dL (6.4-8.2)
[2018-08-07 07:02] VITALS: BP 145/80
[2018-08-07] MEDS: POTASSIUM CHLORIDE 20 MEQ TAB.ER.PRT PO SCH (07:50)
[2018-08-07] MEDS: FLUOXETINE HCL 20 MG CAPSULE PO SCH (07:50)
[2018-08-07 12:00] VITALS: BP 128/71
[2018-08-07] MEDS: CEFTRIAXONE PMX 2GM/50ML 50 ML IV SCH (12:28)
[2018-08-07] MEDS: ENOXAPARIN 30 MG/0.3 ML SQ SCH (17:00)
[2018-08-07 18:50] VITALS: BP 123/69
[2018-08-08 01:55] VITALS: BP 126/68
[2018-08-08 05:02] LABS: BASOPHILS # (AUTO) 0.04 x10^3/uL (0-0.1); BASOPHILS % (AUTO) 0 % (0-1); EOSINOPHILS # (AUTO) 0.28 x10^3/uL (0-0.4); EOSINOPHILS % (AUTO) 3 % (1-7); LYMPHOCYTES # (AUTO) 2.61 x10^3/uL (1-3.4); LYMPHOCYTES % (AUTO) 24 % (22-44); MD NO; MEAN CORPUSCULAR HEMOGLOBIN 32.5 pg (27.0-34.8); MEAN CORPUSCULAR HGB CONC 32.7 g/dL (32.4-35.8); MEAN CORPUSCULAR VOLUME 99.3 fL (80-100); MEAN PLATELET VOLUME 6.6 fL (7.4-10.4); MONOCYTES # (AUTO) 0.71 x10^3/uL (0.2-0.8); MONOCYTES % (AUTO) 7 % (2-9); NEUTROPHILS # (AUTO) 7.07 x10^3/uL (1.8-6.8); NEUTROPHILS % (AUTO) 66 % (42-75); PLATELET COUNT 518 x10^3/uL (130-400); RED BLOOD COUNT 2.71 x10^6/uL (3.82-5.3); RED CELL DISTRIBUTION WIDTH 14.5 % (9.6-15.2)
[2018-08-08 05:04] LABS: HCT (SEDRATE) 26.9 % (34.6-47.8)
[2018-08-08 05:16] LABS: CHLORIDE 107 mmol/L (98-107)
[2018-08-08 05:47] LABS: ALANINE AMINOTRANSFERASE 29 U/L (12-78); ALBUMIN 2.2 g/dL (3.4-5.0); ALKALINE PHOSPHATASE 150 U/L (45-117); ANION GAP 7 mmol/L (5-15); BILIRUBIN,TOTAL 0.6 mg/dL (0.2-1.0); CREATININE 0.62 mg/dL (0.55-1.02); TOTAL PROTEIN 5.5 g/dL (6.4-8.2)
[2018-08-08 07:07] VITALS: BP 137/76
[2018-08-08] MEDS: HYDROcodone/APAP 5/325 TABLET PO PRN ×2 (07:18→10:51)
[2018-08-08] MEDS: FLUOXETINE HCL 20 MG CAPSULE PO SCH (08:48)
[2018-08-08] MEDS: POTASSIUM CHLORIDE 20 MEQ TAB.ER.PRT PO SCH (08:48)
[2018-08-08] MEDS: CEFTRIAXONE PMX 2GM/50ML 50 ML IV SCH (12:15)
[2018-08-08 14:28] VITALS: BP 101/72
== END 2018-08-08 17:00 | disposition home health service (06) | DRG 871 ==
LOC: ED 21:53 → EDIP 08-01 00:18 → 3NE 08-01 00:52
PROVIDERS: ADMIT Internal Medicine; ATTEND Internal Medicine
PROC: 0T9B70Z Drainage of Bladder with Drainage Device, Via Natural or Artificial Opening (ICD-10-PCS; principal; 2018-07-31)
PROC: 02HV33Z Insertion of Infusion Device into Superior Vena Cava, Percutaneous Approach (ICD-10-PCS; 2018-08-06)
PROC: B548ZZA Ultrasonography of Superior Vena Cava, Guidance (ICD-10-PCS; 2018-08-06)
PROC: B5181ZA Fluoroscopy of Superior Vena Cava using Low Osmolar Contrast, Guidance (ICD-10-PCS; 2018-08-06)
DX: A41.50 Gram-negative sepsis, unspecified (principal); E43 Unspecified severe protein-calorie malnutrition; N17.0 Acute kidney failure with tubular necrosis; N10 Acute pyelonephritis; F11.20 Opioid dependence, uncomplicated; E11.9 Type 2 diabetes mellitus without complications; I10 Essential (primary) hypertension; B96.20 Unspecified Escherichia coli [E. coli] as the cause of diseases classified elsewhere; F32.9 Major depressive disorder, single episode, unspecified; E78.00 Pure hypercholesterolemia, unspecified; M10.9 Gout, unspecified; D53.9 Nutritional anemia, unspecified; D63.8 Anemia in other chronic diseases classified elsewhere; E78.5 Hyperlipidemia, unspecified; E87.6 Hypokalemia; M19.90 Unspecified osteoarthritis, unspecified site; M35.3 Polymyalgia rheumatica; R32 Unspecified urinary incontinence; N32.3 Diverticulum of bladder; Z96.653 Presence of artificial knee joint, bilateral; J44.9 Chronic obstructive pulmonary disease, unspecified; Z99.81 Dependence on supplemental oxygen; Z79.52 Long term (current) use of systemic steroids; Z86.73 Personal history of transient ischemic attack (TIA), and cerebral infarction without residual deficits; Z87.891 Personal history of nicotine dependence; Z87.440 Personal history of urinary (tract) infections; Z90.49 Acquired absence of other specified parts of digestive tract; Z98.41 Cataract extraction status, right eye; Z98.42 Cataract extraction status, left eye
CPT/HCPCS: 36415; 36569; 71045; 74176; 74455; 76770; 76937; 77001; 80053; 81001; 82607; 83036; 83605; 83690; 83735; 83880; 84443; 84550; 85025; 85610; 85651; 85730; 86140; 87040; 87077; 87086; 87186; 93005; 96365; 99285; G0378; J0696; J1650; J3480; C1751; J1720; J7030; J7120

== ENCOUNTER 2018-09-19 11:05 | Inpatient (IN) | payer MEDICARE, OTHER ==
[~2018-09-19] VITALS: Ht 152.4 cm; Wt 65.9 kg
--- NOTE | 2018-09-19 11:48 | NUR ---
Assumed care of patient. C/O weakness, stating "I feel this way every time I get a UTI". No BM x 1 week. Straight cath UA sent to lab. Placed on NIBP, pulse ox and caridac monitor. Will continue to monitor.
[2018-09-19 12:02] LABS: BASOPHILS # (AUTO) 0.03 x10^3/uL (0-0.1); BASOPHILS % (AUTO) 0 % (0-1); EOSINOPHILS % (AUTO) 0 % (1-7); LYMPHOCYTES # (AUTO) 1.43 x10^3/uL (1-3.4); LYMPHOCYTES % (AUTO) 12 % (22-44); MD NO; MEAN CORPUSCULAR HGB CONC 32.2 g/dL (32.4-35.8); MEAN CORPUSCULAR VOLUME 99.2 fL (80-100); MEAN PLATELET VOLUME 7.7 fL (7.4-10.4); MONOCYTES % (AUTO) 4 % (2-9); NEUTROPHILS # (AUTO) 10.19 x10^3/uL (1.8-6.8); NEUTROPHILS % (AUTO) 84 % (42-75); PLATELET COUNT 388 x10^3/uL (130-400); RED BLOOD COUNT 3.21 x10^6/uL (3.82-5.3)
[2018-09-19 12:11] LABS: ALBUMIN 2.8 g/dL (3.4-5.0); ANION GAP 5 mmol/L (5-15); CALCIUM 9.7 mg/dL (8.5-10.1); CHLORIDE 102 mmol/L (98-107)
[2018-09-19 12:16] LABS: CREATININE 1.01 mg/dL (0.55-1.02); TROPONIN I < 0.015 ng/mL (0.000-0.045)
[2018-09-19 12:23] LABS: CULTURE INDICATED? YES; MICROSCOPIC INDICATED
[2018-09-19] MEDS ORDERED: LEVOFLOXACIN/PMX 750MG/150ML 150 ML IV ONE (13:00)
[2018-09-19] MEDS ORDERED: CHOL100011 PO (13:11)
[2018-09-19] MEDS ORDERED: SPIR25TA5 PO (13:11)
[2018-09-19] MEDS ORDERED: POTA25TA4 PO (13:11)
[2018-09-19] MEDS ORDERED: FURO-93 PO (13:11)
[2018-09-19] MEDS ORDERED: OMEP-110 PO (13:12)
--- NOTE | 2018-09-19 13:12 | NUR ---
IV started. VSS. No other needs at this time. Plan is to admit - Dr. Stern.
[2018-09-19] MEDS ORDERED: LEVOFLOXACIN/PMX 750MG/150ML 150 ML ONE (13:16)
[2018-09-19] MEDS ORDERED: DOCUSATE 100 MG CAPSULE ONE (13:21)
[2018-09-19] MEDS ORDERED: POLYETHYLENE GLYCOL 17 GM PACKET ONE (13:21)
[2018-09-19] MEDS ORDERED: DOCUSATE 100 MG CAPSULE PO ONE (13:30)
[2018-09-19] MEDS ORDERED: HYDROcodone/APAP 5/325 TABLET PO ONE (13:30)
[2018-09-19] MEDS ORDERED: POLYETHYLENE GLYCOL 17 GM PACKET NG ONE (13:30)
--- NOTE | 2018-09-19 13:35 | NUR ---
Report called to NIXON Isaacs.
[2018-09-19] MEDS ORDERED: HYDROcodone/APAP 5/325 TABLET ONE (13:36)
[2018-09-19 14:29] VITALS: BP 100/63
[2018-09-19] MEDS ORDERED: TRAZODONE 50MG TABLET PO PRN (16:00)
[2018-09-19] MEDS ORDERED: ACETAMINOPHEN 325 MG TABLET PO PRN (16:00)
[2018-09-19] MEDS ORDERED: ONDANSETRON ODT 4 MG PO PRN (16:00)
[2018-09-19] MEDS: LEVOFLOXACIN/PMX 500MG/100ML 100 ML IV SCH (16:30)
[2018-09-19] MEDS: FUROSEMIDE 20 MG TABLET PO SCH (17:09)
[2018-09-19] MEDS: POTASSIUM CHLORIDE 20 MEQ in LACTATED RINGERS 1,000 ML IV SCH (17:09)
[2018-09-19] MEDS: HYDROcodone/APAP 10/325 MG TABLET PO PRN (17:55)
[2018-09-19 19:53] VITALS: BP 100/63
[2018-09-19] MEDS: ENOXAPARIN 30 MG/0.3 ML SQ SCH (20:08)
[2018-09-19] MEDS: metFORMIN 500 MG TABLET PO SCH (20:08)
[2018-09-20] MEDS: HYDROcodone/APAP 10/325 MG TABLET PO PRN ×5 (00:05→23:03)
[2018-09-20 01:36] VITALS: BP 127/75
[2018-09-20] MEDS: POTASSIUM CHLORIDE 20 MEQ in LACTATED RINGERS 1,000 ML IV SCH ×2 (05:27→19:59)
[2018-09-20 05:39] LABS: BASOPHILS # (AUTO) 0.03 x10^3/uL (0-0.1); BASOPHILS % (AUTO) 0 % (0-1); EOSINOPHILS % (AUTO) 2 % (1-7); LYMPHOCYTES # (AUTO) 2.36 x10^3/uL (1-3.4); LYMPHOCYTES % (AUTO) 23 % (22-44); MD NO; MEAN CORPUSCULAR HGB CONC 33.5 g/dL (32.4-35.8); MEAN CORPUSCULAR VOLUME 98.5 fL (80-100); MEAN PLATELET VOLUME 7.5 fL (7.4-10.4); MONOCYTES # (AUTO) 1.09 x10^3/uL (0.2-0.8); MONOCYTES % (AUTO) 10 % (2-9); NEUTROPHILS # (AUTO) 6.81 x10^3/uL (1.8-6.8); NEUTROPHILS % (AUTO) 65 % (42-75); PLATELET COUNT 349 x10^3/uL (130-400); RED BLOOD COUNT 2.92 x10^6/uL (3.82-5.3); RED CELL DISTRIBUTION WIDTH 14.2 % (9.6-15.2)
[2018-09-20 06:57] VITALS: BP 113/68
[2018-09-20] MEDS: ALLOPURINOL 300 MG TABLET PO SCH (09:11)
[2018-09-20] MEDS: OMEPRAZOLE 20 MG CAPSULE.DR PO SCH (09:11)
[2018-09-20] MEDS: metFORMIN 500 MG TABLET PO SCH ×2 (09:11→19:58)
[2018-09-20 12:35] VITALS: BP 104/60
[2018-09-20] MEDS: FUROSEMIDE 20 MG TABLET PO SCH (17:00)
[2018-09-20] MEDS: LEVOFLOXACIN/PMX 500MG/100ML 100 ML IV SCH (17:00)
[2018-09-20 18:53] VITALS: BP 126/68
[2018-09-20] MEDS: ENOXAPARIN 30 MG/0.3 ML SQ SCH (19:59)
[2018-09-21 02:04] VITALS: BP 106/68
[2018-09-21] MEDS: HYDROcodone/APAP 10/325 MG TABLET PO PRN ×4 (05:12→20:41)
[2018-09-21 05:23] LABS: BASOPHILS # (AUTO) 0.03 x10^3/uL (0-0.1); BASOPHILS % (AUTO) 0 % (0-1); EOSINOPHILS # (AUTO) 0.34 x10^3/uL (0-0.4); EOSINOPHILS % (AUTO) 4 % (1-7); LYMPHOCYTES # (AUTO) 2.21 x10^3/uL (1-3.4); LYMPHOCYTES % (AUTO) 23 % (22-44); MD NO; MEAN CORPUSCULAR HEMOGLOBIN 32.5 pg (27.0-34.8); MEAN CORPUSCULAR VOLUME 98.6 fL (80-100); MEAN PLATELET VOLUME 7.6 fL (7.4-10.4); MONOCYTES # (AUTO) 1.06 x10^3/uL (0.2-0.8); MONOCYTES % (AUTO) 11 % (2-9); NEUTROPHILS # (AUTO) 6.05 x10^3/uL (1.8-6.8); NEUTROPHILS % (AUTO) 62 % (42-75); PLATELET COUNT 368 x10^3/uL (130-400); RED BLOOD COUNT 2.84 x10^6/uL (3.82-5.3); RED CELL DISTRIBUTION WIDTH 14.2 % (9.6-15.2)
[2018-09-21 05:39] LABS: ALBUMIN 2.2 g/dL (3.4-5.0); ANION GAP 4 mmol/L (5-15); CALCIUM 9.2 mg/dL (8.5-10.1); CHLORIDE 105 mmol/L (98-107)
[2018-09-21 05:44] LABS: % IRON SATURATION 16 % (20-55); ALANINE AMINOTRANSFERASE 15 U/L (12-78); ALKALINE PHOSPHATASE 157 U/L (45-117); BILIRUBIN,TOTAL 0.4 mg/dL (0.2-1.0); CREATININE 0.89 mg/dL (0.55-1.02); IRON LEVEL 30 mcg/dL (50-170); TOTAL IRON BINDING CAPACITY 184 mcg/dL (250-450); TOTAL PROTEIN 5.7 g/dL (6.4-8.2)
[2018-09-21 07:45] VITALS: BP 115/65
[2018-09-21] MEDS: POTASSIUM CHLORIDE 20 MEQ in LACTATED RINGERS 1,000 ML IV SCH (09:46)
[2018-09-21] MEDS: metFORMIN 500 MG TABLET PO SCH ×2 (09:47→20:41)
[2018-09-21] MEDS: ALLOPURINOL 300 MG TABLET PO SCH (09:47)
[2018-09-21] MEDS: OMEPRAZOLE 20 MG CAPSULE.DR PO SCH (09:47)
[2018-09-21 13:35] VITALS: BP 112/58
[2018-09-21] MEDS: FUROSEMIDE 20 MG TABLET PO SCH (17:32)
[2018-09-21] MEDS: LEVOFLOXACIN/PMX 500MG/100ML 100 ML IV SCH (17:32)
[2018-09-21] MEDS: FERROUS GLUCONATE 324 MG TABLET PO SCH (17:32)
[2018-09-21 18:44] VITALS: BP 126/71
[2018-09-21] MEDS: ENOXAPARIN 30 MG/0.3 ML SQ SCH (20:41)
[2018-09-22 00:45] VITALS: BP 121/61
[2018-09-22] MEDS: POTASSIUM CHLORIDE 20 MEQ in LACTATED RINGERS 1,000 ML IV SCH (03:07)
[2018-09-22] MEDS: HYDROcodone/APAP 10/325 MG TABLET PO PRN ×2 (03:26→08:53)
[2018-09-22 08:40] VITALS: BP 107/69
[2018-09-22] MEDS: metFORMIN 500 MG TABLET PO SCH (08:54)
[2018-09-22] MEDS: ALLOPURINOL 300 MG TABLET PO SCH (08:54)
[2018-09-22] MEDS: OMEPRAZOLE 20 MG CAPSULE.DR PO SCH (08:54)
[2018-09-22] MEDS: FERROUS GLUCONATE 324 MG TABLET PO SCH (08:54)
[2018-09-22] MEDS ORDERED: FERR325T16 PO (14:02)
[2018-09-22] MEDS ORDERED: CIPR500T87 PO (16:02)
[2018-09-22] MEDS ORDERED: ENOXAPARIN 40 MG/0.4 ML SQ SCH (20:00)
== END 2018-09-22 16:14 | disposition home health service (06) | DRG 871 ==
LOC: ED 12:15 → EDIP 13:10 → 3NE 13:49 → DCLOUNGE 09-22 16:02
PROVIDERS: ADMIT Internal Medicine; ATTEND Internal Medicine
PROC: 0T9B70Z Drainage of Bladder with Drainage Device, Via Natural or Artificial Opening (ICD-10-PCS; principal; 2018-09-19)
DX: A41.9 Sepsis, unspecified organism (principal); J96.21 Acute and chronic respiratory failure with hypoxia; N30.90 Cystitis, unspecified without hematuria; J44.9 Chronic obstructive pulmonary disease, unspecified; E11.9 Type 2 diabetes mellitus without complications; D50.9 Iron deficiency anemia, unspecified; G89.29 Other chronic pain; M54.5 Low back pain; I10 Essential (primary) hypertension; K59.00 Constipation, unspecified; M19.90 Unspecified osteoarthritis, unspecified site; M35.3 Polymyalgia rheumatica; Z79.84 Long term (current) use of oral hypoglycemic drugs; Z79.899 Other long term (current) drug therapy; Z87.440 Personal history of urinary (tract) infections; Z87.891 Personal history of nicotine dependence
CPT/HCPCS: 36415; 71045; 80048; 80053; 81001; 82040; 83540; 83550; 84484; 85025; 87077; 87086; 87186; 93005; 96374; 99285; G0378; J1650; J1956; J3480; J7120

== ENCOUNTER 2019-02-13 09:49 | Inpatient (IN) | payer MEDICARE ==
[~2019-02-13] VITALS: Ht 152.4 cm; Wt 63.8 kg
[~2019-02-13 09:49] MED LIST changes: +CHOL100011 PO; +FERR325T16 PO; +FURO-93 PO; +OMEP-110 PO; +POTA25TA4 PO
[2019-02-13] MEDS ORDERED: PHENAZOPYRIDINE 200 MG TABLET PO ONE (10:00)
--- NOTE | 2019-02-13 10:09 | NUR ---
BIB EMS FROM HOME. PT C/O PAINFUL URINATION, INCREASED WEAKNESS AND BODY ACHES FOR 2 DAYS. PT ASSISSTED FROM [facility] TO [facility] [place], 2 PERSON ASSIST, URINE SAMPLE COLLECTED. PT RTD TO [facility] [address] CANDELARIA AT BEDSIDE, ASSESSMENT REV. AND QUESTIONS ANSWERED. ORDERS REC'D. CALL LIGHT W/I REACH. PTS DAUGHTER AT BEDSIDE.
[2019-02-13] MEDS ORDERED: PHENAZOPYRIDINE 200 MG TABLET ONE (10:19)
[2019-02-13 10:24] LABS: BASOPHILS # (AUTO) 0.03 x10^3/uL (0-0.1); BASOPHILS % (AUTO) 0 % (0-1); EOSINOPHILS # (AUTO) 0.04 x10^3/uL (0-0.4); EOSINOPHILS % (AUTO) 0 % (1-7); LYMPHOCYTES # (AUTO) 0.69 x10^3/uL (1-3.4); LYMPHOCYTES % (AUTO) 4 % (22-44); MD NO; MEAN CORPUSCULAR HEMOGLOBIN 30.4 pg (27.0-34.8); MEAN CORPUSCULAR HGB CONC 32.5 g/dL (32.4-35.8); MEAN CORPUSCULAR VOLUME 93.6 fL (80-100); MEAN PLATELET VOLUME 7.3 fL (7.4-10.4); MONOCYTES % (AUTO) 4 % (2-9); NEUTROPHILS # (AUTO) 14.32 x10^3/uL (1.8-6.8); NEUTROPHILS % (AUTO) 91 % (42-75); PLATELET COUNT 342 x10^3/uL (130-400); RED BLOOD COUNT 3.89 x10^6/uL (3.82-5.3); RED CELL DISTRIBUTION WIDTH 15.8 % (9.6-15.2)
[2019-02-13 10:26] LABS: CULTURE INDICATED? YES; MICROSCOPIC INDICATED
[2019-02-13 10:37] LABS: ALANINE AMINOTRANSFERASE 19 U/L (12-78); ALBUMIN 3.1 g/dL (3.4-5.0); ANION GAP 7 mmol/L (5-15); CALCIUM 8.8 mg/dL (8.5-10.1); CHLORIDE 109 mmol/L (98-107)
[2019-02-13 10:39] LABS: ALKALINE PHOSPHATASE 110 U/L (45-117); BILIRUBIN,TOTAL 0.9 mg/dL (0.2-1.0); CREATININE 0.89 mg/dL (0.55-1.02); TOTAL PROTEIN 6.5 g/dL (6.4-8.2)
[2019-02-13] MEDS ORDERED: CEFTRIAXONE PMX 1GM/50ML 50 ML IVPB ONE (11:00)
--- NOTE | 2019-02-13 11:05 | NUR ---
ONE SET OF BLOOD CULTURES OK PER ERP. OK TO ADMINISTER ABX.
[2019-02-13] MEDS ORDERED: CEFTRIAXONE PMX 1GM/50ML 50 ML ONE (11:25)
[2019-02-13] MEDS ORDERED: ONDANSETRON 2MG/ML, 2ML IVPush ONE (11:30)
[2019-02-13] MEDS ORDERED: MORPHINE SULFATE 4 MG/ML, 1ML IVPush PRN (11:30)
[2019-02-13] MEDS ORDERED: MORPHINE SULFATE 4 MG/ML, 1ML ONE (11:44)
[2019-02-13] MEDS ORDERED: ONDANSETRON 2MG/ML, 2ML ONE (11:44)
--- NOTE | 2019-02-13 11:45 | NUR ---
REPORT CALLED TO IONA ALICEA, NOTIFIED IONA THAT 4MG MORPHINE TO BE ADMINSTERED PRIOR TO TRANSFER.
[2019-02-13] MEDS ORDERED: PRED5TAB PO (11:53)
[2019-02-13] MEDS ORDERED: OMEP40CA6 PO (11:55)
[2019-02-13 12:11] VITALS: BP 111/61
[2019-02-13 13:33] VITALS: BP 111/61
[2019-02-13] MEDS ORDERED: ACETAMINOPHEN 325 MG TABLET PO PRN (14:00)
[2019-02-13] MEDS ORDERED: DOCUSATE 100 MG CAPSULE PO PRN (14:00)
[2019-02-13] MEDS ORDERED: TRAZODONE 50MG TABLET PO PRN (14:00)
[2019-02-13] MEDS ORDERED: KETOROLAC 30 MG/1 ML IV PRN (14:00)
[2019-02-13 14:37] LABS: HEMOGLOBIN A1C 7.3 % (4.2-6.3)
[2019-02-13] MEDS: POTASSIUM CHLORIDE 20 MEQ in LACTATED RINGERS 1,000 ML IV SCH (15:11)
[2019-02-13] MEDS: HYDROcodone/APAP 10/325 MG TABLET PO PRN ×2 (16:59→21:01)
[2019-02-13 19:08] VITALS: BP 116/64
[2019-02-13] MEDS: metFORMIN 500 MG TABLET PO SCH (21:01)
[2019-02-14 01:18] VITALS: BP 110/58
[2019-02-14] MEDS: HYDROcodone/APAP 10/325 MG TABLET PO PRN ×4 (01:25→20:04)
[2019-02-14] MEDS: POTASSIUM CHLORIDE 20 MEQ in LACTATED RINGERS 1,000 ML IV SCH ×2 (04:47→21:17)
[2019-02-14 05:46] LABS: ALBUMIN 2.5 g/dL (3.4-5.0); ANION GAP 4 mmol/L (5-15); CALCIUM 8.8 mg/dL (8.5-10.1); CHLORIDE 108 mmol/L (98-107)
[2019-02-14 05:50] LABS: HEMOGLOBIN A1C 7.1 % (4.2-6.3)
[2019-02-14 05:52] LABS: ALANINE AMINOTRANSFERASE 16 U/L (12-78); ALKALINE PHOSPHATASE 92 U/L (45-117); BILIRUBIN,TOTAL 0.6 mg/dL (0.2-1.0); CREATININE 0.77 mg/dL (0.55-1.02); TOTAL PROTEIN 5.6 g/dL (6.4-8.2)
[2019-02-14 05:58] LABS: BASOPHILS # (AUTO) 0.02 x10^3/uL (0-0.1); BASOPHILS % (AUTO) 0 % (0-1); EOSINOPHILS # (AUTO) 0.18 x10^3/uL (0-0.4); EOSINOPHILS % (AUTO) 2 % (1-7); LYMPHOCYTES % (AUTO) 23 % (22-44); MD NO; MEAN CORPUSCULAR HEMOGLOBIN 29.7 pg (27.0-34.8); MEAN CORPUSCULAR HGB CONC 31.6 g/dL (32.4-35.8); MEAN PLATELET VOLUME 7.7 fL (7.4-10.4); MONOCYTES # (AUTO) 0.97 x10^3/uL (0.2-0.8); MONOCYTES % (AUTO) 8 % (2-9); NEUTROPHILS # (AUTO) 8.49 x10^3/uL (1.8-6.8); NEUTROPHILS % (AUTO) 68 % (42-75); PLATELET COUNT 297 x10^3/uL (130-400); RED BLOOD COUNT 3.44 x10^6/uL (3.82-5.3); RED CELL DISTRIBUTION WIDTH 16.5 % (9.6-15.2)
[2019-02-14 07:15] VITALS: BP 127/57
[2019-02-14] MEDS: CEFTRIAXONE PMX 1GM/50ML 50 ML IV SCH (08:25)
[2019-02-14] MEDS: metFORMIN 500 MG TABLET PO SCH ×2 (08:25→21:16)
[2019-02-14] MEDS: ALLOPURINOL 300 MG TABLET PO SCH (08:26)
[2019-02-14] MEDS: FUROSEMIDE 20 MG TABLET PO SCH (08:26)
[2019-02-14] MEDS: OMEPRAZOLE 20 MG CAPSULE.DR PO SCH (08:26)
[2019-02-14 12:14] VITALS: BP 154/67
[2019-02-14 20:10] VITALS: BP 130/61
[2019-02-15] MEDS: HYDROcodone/APAP 10/325 MG TABLET PO PRN ×4 (00:01→14:58)
[2019-02-15 00:50] VITALS: BP 146/71
[2019-02-15 04:29] LABS: BASOPHILS # (AUTO) 0.04 x10^3/uL (0-0.1); BASOPHILS % (AUTO) 0 % (0-1); EOSINOPHILS # (AUTO) 0.19 x10^3/uL (0-0.4); EOSINOPHILS % (AUTO) 2 % (1-7); LYMPHOCYTES % (AUTO) 25 % (22-44); MD NO; MEAN CORPUSCULAR HEMOGLOBIN 30.5 pg (27.0-34.8); MEAN CORPUSCULAR HGB CONC 32.1 g/dL (32.4-35.8); MEAN CORPUSCULAR VOLUME 94.8 fL (80-100); MEAN PLATELET VOLUME 7.7 fL (7.4-10.4); MONOCYTES # (AUTO) 0.85 x10^3/uL (0.2-0.8); MONOCYTES % (AUTO) 8 % (2-9); NEUTROPHILS # (AUTO) 7.24 x10^3/uL (1.8-6.8); NEUTROPHILS % (AUTO) 66 % (42-75); PLATELET COUNT 315 x10^3/uL (130-400); RED BLOOD COUNT 3.47 x10^6/uL (3.82-5.3); RED CELL DISTRIBUTION WIDTH 15.8 % (9.6-15.2)
[2019-02-15 06:47] VITALS: BP 116/60
[2019-02-15] MEDS: FUROSEMIDE 20 MG TABLET PO SCH (08:18)
[2019-02-15] MEDS: OMEPRAZOLE 20 MG CAPSULE.DR PO SCH (08:18)
[2019-02-15] MEDS: metFORMIN 500 MG TABLET PO SCH (08:18)
[2019-02-15] MEDS: ALLOPURINOL 300 MG TABLET PO SCH (08:18)
[2019-02-15] MEDS: CEFTRIAXONE PMX 1GM/50ML 50 ML IV SCH (09:18)
[2019-02-15] MEDS: POTASSIUM CHLORIDE 20 MEQ in LACTATED RINGERS 1,000 ML IV SCH (09:18)
[2019-02-15 12:17] VITALS: BP 129/80
== END 2019-02-15 16:30 | disposition home or self-care (01) | DRG 872 ==
LOC: ED 10:59 → 3NW 11:00 → DCLOUNGE 02-15 16:20
PROVIDERS: ADMIT Internal Medicine; ATTEND Internal Medicine
DX: A41.51 Sepsis due to Escherichia coli [E. coli] (principal); E11.9 Type 2 diabetes mellitus without complications; E78.00 Pure hypercholesterolemia, unspecified; E78.5 Hyperlipidemia, unspecified; G89.4 Chronic pain syndrome; I10 Essential (primary) hypertension; M35.3 Polymyalgia rheumatica; N30.90 Cystitis, unspecified without hematuria; Z86.73 Personal history of transient ischemic attack (TIA), and cerebral infarction without residual deficits; Z87.891 Personal history of nicotine dependence; Z90.49 Acquired absence of other specified parts of digestive tract; Z79.899 Other long term (current) drug therapy; Z79.52 Long term (current) use of systemic steroids; Z79.84 Long term (current) use of oral hypoglycemic drugs
CPT/HCPCS: 36415; 80053; 81001; 83036; 83605; 85025; 87040; 87077; 87086; 87186; 96374; 96375; G0378; J0696; J2405; J3480; J2270; J7120; J7512

== ENCOUNTER 2020-11-10 13:00 | Emergency (ER) | payer MEDICARE, OTHER ==
[~2020-11-10] VITALS: Ht 152.4 cm; Wt 79.4 kg
[~2020-11-10 13:00] MED LIST changes: -ASPI-515 PO; +ASPI-963 PO; +AZIT500T10 PO; -AZIT500T5 PO; -CLIN300C8 PO; +CLIN300C9 PO; +HYDR-1067 PO; -HYDR-3240 PO; +HYDR-3248 PO; -HYDR-3307 PO; +LINE600T15 PO; -LINE600T33 PO; +LISI1TAB23 PO; -LISI1TAB3 PO; +OMEP40CA42 PO
--- NOTE | 2020-11-10 13:30 | NUR ---
PT STATES HAVING DIARRHEA ALL THE TIME. PT REPORTS FEELING CONSTIPATED AND NOT HAVING BM FOR 2 DAYS. PT STATES PAIN UPON TOUCH IN LEFT LOWER QUADRANT OF A ABDOMEN. FEELS NAUSEATED WELL.
[2020-11-10] MEDS ORDERED: HYDROmorphone 1 MG/ML, 1ML INJ IM ONE (14:00)
[2020-11-10] MEDS ORDERED: HYDROmorphone 1 MG/ML, 1ML INJ ONE (14:06)
--- NOTE | 2020-11-10 14:55 | NUR ---
PERFORMED [facility] ENEMA ON PT. PT TOLERATING WELL.
--- NOTE | 2020-11-10 15:00 | NUR ---
TRANFERRED PT TO BEDSIDE COMMODE. CALL LIGHT WITHIN REACH.
--- NOTE | 2020-11-10 15:16 | NUR ---
PT ON COMMODE. A&OX4. VSS.
--- NOTE | 2020-11-10 15:47 | NUR ---
PT HAD TWO BROWN, SOFT, AND LARGE BM'S. PT BACK IN BED.
[2020-11-10 16:11] VITALS: BP 143/62
== END 2020-11-10 16:27 | disposition home or self-care (01) ==
LOC: ED 13:37
DX: K56.41 Fecal impaction (principal); I10 Essential (primary) hypertension; E78.5 Hyperlipidemia, unspecified; J44.9 Chronic obstructive pulmonary disease, unspecified; Z86.73 Personal history of transient ischemic attack (TIA), and cerebral infarction without residual deficits; Z90.89 Acquired absence of other organs; Z88.0 Allergy status to penicillin; Z88.6 Allergy status to analgesic agent
CPT/HCPCS: 96372; 99284; J1170; 99283